=== PATIENT | female | born 2000 | race Two or more races ===

== ENCOUNTER 2022-02-14 12:41 | Emergency (ER) | payer MEDICAID ==
[~2022-02-14] VITALS: Ht 170.2 cm; Wt 68.0 kg
[2022-02-14] MEDS ORDERED: ONDANSETRON ODT 4 MG TAB PO ONE (14:45)
[2022-02-14] MEDS ORDERED: SODIUM CHLORIDE 0.9% 1,000 ML IV ONE (14:45)
[2022-02-14] MEDS ORDERED: HYDROmorphone HCL 2 MG/ML VL/or syr IV ONE (14:45)
[2022-02-14 15:09] LABS: Urine Bacteria FEW /hpf (None Seen); Urine Blood Negative /uL (Negative); Urine Mucus FEW (None Seen); Urine Specific Gravity 1.026 (1.001-1.035); Urine WBC 18 /hpf (0 - 5)
[2022-02-14 15:36] LABS: Basophils # (auto) 0 10 ^3/uL (0-0.2); Basophils % (auto) 0.3 % (0.0-2.0); Eosinophils # (auto) 0.1 10 ^3/uL (0-0.8); Eosinophils % (auto) 1.1 % (0.0-7.0); Hematocrit 39.9 % (36.0-46.0); Hemoglobin 13.7 g/dL (12.2-16.2); Lymphocytes % (auto) 11.3 % (10.0-50.0); Mean Corpuscular Hemoglobin 31.6 pg (28.0-32.0); Mean Corpuscular Hgb Conc. 34.5 g/dL (32.0-36.0); Mean Corpuscular Volume 91.7 fL (80.0-100.0); Monocytes # (auto) 0.7 10 ^3/uL (0-1.3); Monocytes % (auto) 7.8 % (0.0-12.0); Neutrophils % (auto) 79.5 % (37.0-80.0); Red Blood Cells 4.35 10^6/uL (4.0-5.20); Red Cell Distribution Width 13.3 % (11.8-14.3); White Blood Cell 8.8 10^3/uL (4.4-10.8)
[2022-02-14 16:03] LABS: Calcium 8.8 mg/dL (8.5-10.1); Potassium 3.9 mmol/L (3.5-5.1)
[2022-02-14 16:06] LABS: BUN/Creatinine Ratio 9.7; Bilirubin, Total 0.9 mg/dL (0.2-1.0); Total Protein 7.3 g/dL (6.4-8.2)
[2022-02-14 17:08] LABS: INR 1.1 (0.9-1.15); Partial Thromboplastin Time 26.6 sec (23.6-33.0)
[2022-02-14 21:53] VITALS: BP 124/82
== END 2022-02-14 22:57 | disposition short-term general hospital (02) ==
LOC: ER 12:41
DX: N39.0 Urinary tract infection, site not specified (principal); N94.89 Other specified conditions associated with female genital organs and menstrual cycle; Z20.822 Contact with and (suspected) exposure to COVID-19
CPT/HCPCS: 36415; 74176; 76700; 80053; 81001; 83690; 84484; 85025; 85610; 85730; 87426; 96360; 96361; 99285; J7030

== ENCOUNTER 2022-03-27 19:53 | Emergency (ER) | payer MEDICAID ==
[~2022-03-27] VITALS: Ht 167.6 cm; Wt 59.0 kg
[2022-03-27 21:30] LABS: Basophils # (auto) 0.1 10 ^3/uL (0-0.2); Basophils % (auto) 0.3 % (0.0-2.0); Eosinophils # (auto) 0.1 10 ^3/uL (0-0.8); Eosinophils % (auto) 0.3 % (0.0-7.0); Hematocrit 38.1 % (36.0-46.0); Hemoglobin 12.5 g/dL (12.2-16.2); Lymphocytes # (auto) 1.8 10 ^3/uL (0.4-5.4); Lymphocytes % (auto) 9.7 % (10.0-50.0); Mean Corpuscular Hemoglobin 30.1 pg (28.0-32.0); Mean Corpuscular Hgb Conc. 32.8 g/dL (32.0-36.0); Mean Corpuscular Volume 91.6 fL (80.0-100.0); Monocytes # (auto) 1.1 10 ^3/uL (0-1.3); Monocytes % (auto) 5.9 % (0.0-12.0); Neutrophils # (auto) 15.2 10 ^3/uL (1.6-8.6); Neutrophils % (auto) 83.8 % (37.0-80.0); Red Blood Cells 4.16 10^6/uL (4.0-5.20); Red Cell Distribution Width 13.4 % (11.8-14.3); White Blood Cell 18.1 10^3/uL (4.4-10.8)
[2022-03-27 21:55] LABS: Albumin 3.9 g/dL (3.4-5.0); BUN/Creatinine Ratio 18.2; Calcium 8.6 mg/dL (8.5-10.1); Potassium 3.7 mmol/L (3.5-5.1)
[2022-03-27 21:57] LABS: Bilirubin, Total 0.6 mg/dL (0.2-1.0); Total Protein 7.4 g/dL (6.4-8.2)
[2022-03-27 22:01] LABS: Urine Bacteria MOD /hpf (None Seen); Urine Blood Negative /uL (Negative); Urine Specific Gravity 1.005 (1.001-1.035); Urine WBC 9 /hpf (0 - 5)
[2022-03-28] MEDS ORDERED: MORPHINE SULFATE 4 MG/ML SYR/VIAL IV ONE
[2022-03-28] MEDS ORDERED: SODIUM CHLORIDE 0.9% 1,000 ML IV ONE
[2022-03-28] MEDS ORDERED: IOHEXOL 300 MG/ML 100ML BOTTLE IJ ONE (01:14)
[2022-03-28] MEDS ORDERED: ACETAMINOPHEN 325 MG TAB PO ONE (04:30)
[2022-03-28] MEDS ORDERED: PIPERACILLIN-TAZOB 3.375GM 100 ML IV ONE ×3 (06:00→20:45)
[2022-03-28] MEDS ORDERED: METOCLOPRAMIDE HCL 5MG/ml INJ 2ml VIAL IV ONE (16:15)
[2022-03-28] MEDS ORDERED: MORPHINE SULFATE INJ 2 MG/ml SYRG IV ONE (16:15)
[2022-03-28] MEDS ORDERED: IBUPROFEN 600 MG TAB PO ONE (16:45)
[2022-03-28] MEDS ORDERED: DOCUSATE SOD 100 MG CAP PO ONE (18:45)
[2022-03-28] MEDS ORDERED: VANCOMYCIN 1GM/250ML 250 ML IV ONE ×2 (20:45)
[2022-03-29 08:43] VITALS: BP 114/53
== END 2022-03-28 09:52 | disposition short-term general hospital (02) ==
LOC: ER 19:53
DX: R50.9 Fever, unspecified (principal); Z48.1 Encounter for planned postprocedural wound closure
CPT/HCPCS: 36415; 74177; 80053; 81001; 83605; 84702; 85025; 87040; 96365; 96366; 96367